=== PATIENT | female | born 1985 | race African-American/Black ===

== ENCOUNTER 2017-10-05 19:59 | Emergency (ER) | payer MEDICAID | END 2017-10-05 22:10 | disposition home or self-care (01) | LOC: D.ER 19:59 | DX: H66.92 Otitis media, unspecified, left ear (principal); I10 Essential (primary) hypertension; F17.200 Nicotine dependence, unspecified, uncomplicated ==

== ENCOUNTER 2017-10-11 11:49 | Emergency (ER) | payer MEDICAID | END 2017-10-11 12:28 | disposition home or self-care (01) | LOC: D.ER 11:49 | DX: H66.92 Otitis media, unspecified, left ear (principal); I10 Essential (primary) hypertension ==

== ENCOUNTER 2018-05-07 05:07 | Emergency (ER) | payer SELFPAY ==
[~2018-05-07] VITALS: Ht 172.7 cm; Wt 127.3 kg
[2018-05-07 05:13] VITALS: Ht 172.7 cm; Wt 127.3 kg
[2018-05-07] MEDS ORDERED: AMOXICILLIN500 M1 PO (05:47)
[2018-05-07] MEDS ORDERED: NAPROSYN500 MG PO (05:47)
[2018-05-07 06:14] VITALS: BP 134/80
== END 2018-05-07 06:15 | disposition home or self-care (01) ==
LOC: D.ER 05:07
DX: K04.7 Periapical abscess without sinus (principal); K05.00 Acute gingivitis, plaque induced

== ENCOUNTER 2021-04-10 16:42 | Emergency (ER) | payer SELFPAY ==
[~2021-04-10] VITALS: Ht 167.6 cm; Wt 150.0 kg
[~2021-04-10 16:42] MED LIST: AMOXICILLIN500 M1 PO; NAPROSYN500 MG PO
[2021-04-10 16:48] VITALS: BP 216/105; Ht 167.6 cm; Wt 150.0 kg
[2021-04-10] MEDS ORDERED: PENICILLIN V P500 MG PO (17:15)
[2021-04-10] MEDS ORDERED: TYLENOL W/CODEI1 TAB PO (17:15)
== END 2021-04-10 17:36 | disposition home or self-care (01) ==
LOC: D.ER 16:42
DX: K02.9 Dental caries, unspecified (principal)